=== PATIENT | female | born 1970 | race Caucasian/White ===

== ENCOUNTER 2016-06-16 00:23 | Day surgery (SDC) | payer OTHER ==
[~2016-06-16] VITALS: Ht 172.7 cm; Wt 65.0 kg
[~2016-06-16 00:23] MED LIST: CALC-714 PO; CHOL100045 PO; LEVO150T5 PO; NOMED
[2016-06-16 09:00] VITALS: BP 118/78; PULSE 66; RESP 16; O2SAT 100
--- NOTE | 2016-06-16 09:00 | NUR ---
ADMISSION NOTE FEMALE PT HERE FOR DAY ONE THYROGEN INJECTION. REVIEWED HISTORY.
--- NOTE | 2016-06-16 09:50 | NUR ---
INJECTION GIVEN. IN LEFT BUTTOCK. TOLERATED WELL. WILL RETURN TOMORROW FOR INJECTION NUMBER 2
[2016-06-16] MEDS ORDERED: Thyrotropin 0.9 mg/mL Inj IM SCH (10:00)
[2016-06-17] MEDS ORDERED: Thyrotropin 0.9 mg/mL Inj IM ONE (09:00)
== END 2016-06-16 23:59 | disposition home or self-care (01) ==
LOC: SOUO 00:23
PROVIDERS: ATTEND Internal Medicine Endocrinology, Diabetes & Metabolism
DX: C73 Malignant neoplasm of thyroid gland (principal)
CPT/HCPCS: 96372; J3240

== ENCOUNTER 2016-06-17 00:47 | Day surgery (SDC) | payer OTHER ==
[2016-06-17] MEDS ORDERED: Thyrotropin 0.9 mg/mL Inj IM ONE (10:00)
[2016-06-17 10:55] VITALS: BP 108/78; PULSE 69; RESP 16; O2SAT 100
--- NOTE | 2016-06-17 10:55 | NUR ---
PT HERE FOR DAY 2 OF THYROGEN. NO SERIOUS COMPLAINTS FROM YESTERDAYS INJECTION
--- NOTE | 2016-06-17 11:15 | NUR ---
INJECTION GIVEN. TO RETURN TO DIAGNOSTICS 06/18 FOR DAY 3
== END 2016-06-17 23:59 | disposition home or self-care (01) ==
LOC: SOUO 00:47
PROVIDERS: ATTEND Internal Medicine Endocrinology, Diabetes & Metabolism
DX: C73 Malignant neoplasm of thyroid gland (principal)
CPT/HCPCS: 96372; J3240

== ENCOUNTER → 2016-06-23 | Day surgery (SDC) | payer OTHER ==
[~2016-06-23] MED LIST changes: +Thyrotropin 0.9 mg/mL Inj IM SCH
[2016-06-23 09:15] VITALS: BP 121/76; PULSE 69; RESP 22; O2SAT 100
--- NOTE | 2016-06-23 09:45 | NUR ---
Admitted through [facility] for a 2 day - 2nd week of Thyrogen injection in prep for Nuclear scan. Patient had questions regarding flow of when to take pill and when to have a test. [facility] [place] tech, "Naya" has been called and is talking to patient - regarding her questions.
== END | disposition home or self-care (01) ==
LOC: SOUO 00:15
PROVIDERS: ATTEND Internal Medicine Endocrinology, Diabetes & Metabolism
DX: C73 Malignant neoplasm of thyroid gland (principal)
CPT/HCPCS: 96372; J3240

== ENCOUNTER 2016-06-24 01:54 | Day surgery (SDC) | payer OTHER ==
[~2016-06-24 01:54] MED LIST changes: -Thyrotropin 0.9 mg/mL Inj IM SCH
[2016-06-24] MEDS ORDERED: Thyrotropin 0.9 mg/mL Inj IM ONE (10:00)
== END 2016-06-24 23:59 | disposition home or self-care (01) ==
LOC: SOUO 01:54
PROVIDERS: ATTEND Internal Medicine Endocrinology, Diabetes & Metabolism
DX: C73 Malignant neoplasm of thyroid gland (principal)
CPT/HCPCS: 96372; J3240